=== PATIENT | male | born 1950 | race Caucasian/White ===

== ENCOUNTER 2016-09-07 14:50 | Emergency (ER) | payer MEDICARE, OTHER ==
--- NOTE | 2016-09-07 15:44 | ER NURSING DOCUMENTATION ---
Nurse's Notes [facility] Name:Francis Corbin III Age:66 yrs Sex:Male :1950 Arrival Date:09/07/2016 Time:14:50 Bed1 Private MD:Valerie Singh Diagnosis:Boxer's Fracture Presentation: 09/07 14:52 Acuity: TRE 4 rh 15:00 Presenting complaint: Patient states: Pt was hiking on [place], his let foot rh tripped on a rock, he then fell on the right knee, right hand and left forearm. pt did not hit his head or lose LOC. Transition of care: [facility]. 15:00 Method Of Arrival: Walk In Triage Assessment: 15:01 General: Appears in no apparent distress, Behavior is cooperative. Pain: Complains of rh pain in right hand, dorsal aspect of left forearm and right knee. Neuro: Level of Consciousness is awake, alert, obeys commands, Oriented to person, place, time, event. Musculoskeletal: Circulation, motion, and sensation intact Range of motion intact in all extremities. Injury Description: Abrasion sustained to right knee. Historical: - Allergies: CASHEWS; - Home Meds: 1. citalopram 20 mg oral tab 1 tab once daily 2. tramadol 50 mg oral tab 1 tab every 6 hours as needed 3. ibuprofen 200 mg oral cap 1 cap every 6 hours as needed 4. naproxen sodium 220 mg oral tab 1 tab every 8 hours as needed - PMHx: OSTEOARTHRITIS; DEPRESSION; HYPONATREMIA; ANEMIA; - PSHx: Appendectomy; HERNIA REPAIR; - Tetanus: < 10 years. - Ebola Screening: : Patient negative for fever greater than or equal to 101.5 degrees Fahrenheit, and additional compatible Ebola Virus Disease symptoms. - Immunization history: Flu Vaccine < 1 year. - Social history: Smoking status: Patient states was never smoker of tobacco. Screenin:02 Infectious Disease Risk None. Abuse screen: Denies threats or abuse. Denies injuries rh from another. Nutritional screening: No deficits noted. Assessment: 15:02 See Triage Assessment done by same RN. Vital Signs: 15:01 BP 120 / 74; Pulse 73; Resp 15; Temp 98.0(O); Pulse Ox 95% on R/A; Weight 77.11 kg; rh Height 5 ft. 10 in. (177.80 cm); Pain 6/10; 15:01 Body Mass Index 24.39 (77.11 kg, 177.80 cm) ED Course: 14:51 Patient arrived in ED. ds 14:51 Valerie Singh DO is Private Physician. 14:52 Triage completed. rh 14:58 Jere Henning MD is Attending Physician. larissa 15:00 Lashanda Sultana is Primary Nurse. rh 15:02 Notified ED Physician of patient's arrival and chief complaint. Dr. Henning notified. rh 15:02 Affected limb iced. Affected limb elevated. rh 15:02 Valuables Remains with patient Patient has correct armband on for positive rh identification. Bed in low position. Side rails up X 1. 15:05 Port Xray Completed. ms 15:14 RING REMOVED FROM RIGHT RING FINGER. rh 15:25 Ulnar gutter splint applied on right forearm. rh 15:31 Wound care to abrasion, located on right knee was cleaned with soap and water, dressed rh with bacitracin Kerlix, Telfa Patient tolerated well. 15:32 Norman Robbins MD, Nakul Doss DO is Referral Physician. larissa Administered Medications: No medications were administered Outcome: 15:32 Discharge ordered by . 15:42 Discharged to home ambulatory. 15:42 Condition: improved 15:42 Discharge Assessment: Patient awake, alert and oriented x 3. No cognitive and/or functional deficits noted. Patient verbalized understanding of disposition instructions. 15:42 Discharge instructions given to patient, Instructed on discharge instructions, follow up and referral plans. [facility] Demonstrated understanding of instructions. 15:43 Patient left the ED. 09/08 09:32 Discharge F/U Call: Unable to reach: no answer st Signatures: Pati Montenegro, RN RN st ot, Yesenia, Reg Reg Jere Mclean MD MD jm Strickland, Mary ms Lashanda Sultana
--- NOTE | 2016-09-07 15:44 | ER PHYSICIAN DOCUMENTATION ---
Physician Documentation [facility] Name:Francis Corbin III Age:66 yrs Sex:Male :1950 Arrival Date:09/07/2016 Time:14:50 Bed1 Private MD:Valerie Singh ED, John Disposition: 09/07/16 15:32 Discharged to Home/Self Care. Impression: Boxer's Fracture. - Condition is Good. - Discharge Instructions: FRACTURE, Hand [Closed]. - Medical Reconciliation form form. - Follow up: Norman Robbins MD, Nakul Doss DO; When: 1 week; Reason: Continuance of care. - Problem is new. - Symptoms have improved. HPI: 09/07 15:44 This 66 yrs old Male presents to ER via Walk In with complaints of Finger jm Injury - LEFT. 15:44 The patient or guardian reports injury, pain. The complaints affect the outer aspect of jm right palm. Context: resulted from a fall, on an outstretched hand. Onset: The symptom(s)/episode began/occurred today. Modifying factors: the symptoms are aggravated by movement. Associated signs and symptoms: Pertinent negatives: fever. The patient has experienced a previous episode. Pt here for xray of the hand and for us to cut off his ring on his L ring finger after a fall. . Historical: - Allergies: CASHEWS; - Home Meds: 1. citalopram 20 mg oral tab 1 tab once daily 2. tramadol 50 mg oral tab 1 tab every 6 hours as needed 3. ibuprofen 200 mg oral cap 1 cap every 6 hours as needed 4. naproxen sodium 220 mg oral tab 1 tab every 8 hours as needed - PMHx: OSTEOARTHRITIS; DEPRESSION; HYPONATREMIA; ANEMIA; - PSHx: Appendectomy; HERNIA REPAIR; - Tetanus: < 10 years. - Ebola Screening: : Patient negative for fever greater than or equal to 101.5 degrees Fahrenheit, and additional compatible Ebola Virus Disease symptoms. - Immunization history: Flu Vaccine < 1 year. - Social history: Smoking status: Patient states was never smoker of tobacco. ROS: 15:58 MS/extremity: Positive for injury or acute deformity, decreased range of motion. jm 15:58 Skin: Positive for swelling. Exam: 15:58 Constitutional: The patient appears alert, awake. jm 15:58 Cardiovascular: Rate: normal, Rhythm: regular, Pulses: no pulse deficits are appreciated. 15:58 Musculoskeletal/extremity: Extremities: grossly normal except: noted in the outer aspect of right palm: deformity, pain, ROM: limited active range of motion due to pain, limited passive range of motion due to pain, Pulses: are normal with no appreciated deficits, Perfusion: the extremity is normally perfused throughout, Sensation intact. 15:58 Neuro: Mentation: is normal, Memory: is normal. Vital Signs: 15:01 BP 120 / 74; Pulse 73; Resp 15; Temp 98.0(O); Pulse Ox 95% on R/A; Weight 77.11 kg; rh Height 5 ft. 10 in. (177.80 cm); Pain 6/10; 15:01 Body Mass Index 24.39 (77.11 kg, 177.80 cm) rh Procedures: 15:58 Splinting: Splint applied to outer aspect of right palm using Orthoglass splint, jm applied by myself. Examined by me, post splint application: neurovascular intact, brisk capillary refill noted, Patient tolerated well. MDM: 14:58 Patient medically screened. 15:58 Differential diagnosis: closed fracture. Data reviewed: vital signs, nurses notes, and jm as a result, I will discharge patient. Counseling: I had a detailed discussion with the patient and/or guardian regarding: the historical points, exam findings, and any diagnostic results supporting the discharge/admit diagnosis, radiology results, the need for outpatient follow up, with the patient's primary care provider, a hand specialist, a orthopedic surgeon. ED course: Pt w 5th [facility] fx. . 09/07 16:15 Order name: HAND; [address] [place] [id number] EDMS 09/07 15:00 Order name: ORTHO: Ice Pack; Complete Time: 15:14 rh 09/07 15:14 Order name: Ring Removal; Complete Time: 15:14 rh 09/07 15:18 Order name: Wound Care; Complete Time: 15:18 rh 09/07 15:33 Order name: ORTHO: Splint; Complete Time: 15:33 rh Dispensed Medications: No medications were administered Signatures: Jere Henning MD MD jm Hofsess, Rachel
--- NOTE | 2016-09-07 15:45 | RADIOLOGY REPORT ---
Three views of the right hand demonstrate a comminuted fracture involving the mid shaft region of the right fifth metacarpal. There is approximately 30 degrees of apex dorsal angulation. I do not identify intraarticular involvement. No other acute abnormality is identified. Degenerative changes of the right third metacarpal phalangeal joint are noted. IMPRESSION: Angulated comminuted mid shaft fracture of the right fifth metacarpal as described. MTDD
== END 2016-09-07 15:44 | disposition home or self-care (01) ==
LOC: ER 14:50
DX: S62.326A Displaced fracture of shaft of fifth metacarpal bone, right hand, initial encounter for closed fracture (principal); M79.89 Other specified soft tissue disorders; S80.211A Abrasion, right knee, initial encounter; W01.0XXA Fall on same level from slipping, tripping and stumbling without subsequent striking against object, initial encounter; Y92.838 Other recreation area as the place of occurrence of the external cause; Y93.01 Activity, walking, marching and hiking; M19.90 Unspecified osteoarthritis, unspecified site; Z79.899 Other long term (current) drug therapy
CPT/HCPCS: 29125; 73130; 99283; 99284

== ENCOUNTER 2016-10-06 12:07 | Day surgery (SDC) | payer MEDICARE, OTHER ==
[2016-10-06] MEDS ORDERED: ceFAZolin 1 GM in NORMAL SALINE MINI-BAG+ 100 ML IV PRN ×2 (12:16→13:33)
[2016-10-06] MEDS ORDERED: BUPIVACAINE HCL/PF 0.25% 10 ML VIAL INJ ONE (13:25)
[2016-10-06] MEDS ORDERED: LACTATED RINGERS 1,000 ML IV SCH (14:00)
[2016-10-06] MEDS ORDERED: BACITRACIN 14 APP/14 GM TUBE TOPICAL ONE (14:11)
[2016-10-06 14:28] VITALS: RESP 16; TEMP 97.9
--- NOTE | 2016-10-06 14:34 | RADIOLOGY REPORT ---
Two limited views from the C-Arm in the operating room are compared with prior films dated 10/04/2016. There has been interval reduction and pinning of the distal interphalangeal joint. No other change is identified. IMPRESSION: Interval reduction and pinning of the right fourth distal interphalangeal joint. [facility]
[2016-10-06 15:01] VITALS: BP 162/95; PULSE 65; O2SAT 91
--- NOTE | 2016-10-06 15:08 | OPERATIVE REPORT ---
Preoperative diagnosis: Right ring finger DIP joint dorsal dislocation Postoperative diagnosis: Same Procedure: Right ring finger DIP joint open reduction internal fixation. Surgeon Dr. Nakul Doss Anesthesia: Local block with sedation Estimated blood loss: Minimal Total tourniquet time: 35 minutes Procedure note: The patient is brought to the OR suite after administration of conscious sedation by the anesthesia provider the right ring finger had a digital block performed with 10 mL of quarter percent bupivacaine. A reduction maneuver was attempted under fluoroscopic imaging which was unsuccessful therefore a dorsal incision was made and dissection was carried down to the extensor tendon which was intact. There was some hematoma and scar tissue in the joint which was debrided with a hemostat clamp. The reduction maneuver was then unsuccessful. A double ended K wire was then shot antegrade through the distal phalanx. The DIP joint was then reduced and then the K wire was drilled back retrograde into the middle phalanx with the DIP joint reduced. Fluoroscopic imaging confirmed appropriate placement of the K wire and anatomic reduction of the DIP joint. The incision was closed with simple interrupted 3- 0 nylons and dressed with bacitracin ointment, Xeroform 4 x 4s, 4 x 4 fluffs and an ulnar gutter splint as the patient does have an ipsilateral fifth metacarpal fracture. Prior to application of the dressing a Jurgans ball was attached to the tip of the pin and the pin was cut. The patient was transferred from the OR suite to recovery room in stable condition. [facility]ITAL[facility]rey
--- NOTE | 2016-10-14 12:47 | PREOPERATIVE H&P ---
History of Present Illness (Nakul Doss DO; 10/04/2016 4:12 PM) The patient is a 66 year old male. Patient presents 25 days out from his right fifth metacarpal fracture. He has been compliant with his brace. He has also noticed that his right ring finger has been hurting more and more as his hand pain resolves. He did not originally complain of any pain in the ring finger, however it has become more apparent over the last few days. Additionally, the ring finger was immobilized along with the rest of his hand. After closely reviewing the patient's x-rays from the emergency room, it was noted that he did have a dorsal dislocation of the distal interphalangeal joint of his ring finger. This dorsal dislocation is still present today with x-rays obtained. He has been compliant with his brace wear. His pain has been well-controlled. Allergies (Karine Garcia RN; 10/04/2016 10:37 AM) Nuts Anaphylaxis. cashew No Known Bokaniupw23/28/2016 (Marked as Inactive) Family History (Karine Garcia RN; 10/04/2016 10:37 AM) Father Prostate cancer Maternal Grandmother Leukemia Maternal Grandfather Stomach Cancer ( early 40s) No Significant Family Ocular History Family Members In General. grandmother had leukemia, grandfather had stomach cancer, and father had prostate cancer. Social History (Karine Garcia RN; 10/04/2016 10:37 AM) Tobacco Use Never smoker. Current work status Retired. nursing background, [employer] Medication History (Karine Garcia RN; 10/04/2016 10:37 AM) EpiPen 2-Omkar (0.3MG/0.3ML Soln Auto-inj, 1 (one) Soln Auto-inj Injection to use as directed, Taken starting 08/14/2015) Active. Citalopram Hydrobromide (20MG Tablet, 1 (one) Tablet Oral daily, Taken starting 10/15/2015) Active. TraMADol HCl (50MG Tablet, 1 Oral 1 po tid prn pain, Taken starting 08/09/2016 ) Active. Ibuprofen (200MG Tablet, 3-4 Oral) Active. (arthritis in thumbs) Garlic 1500 (Oral) Specific dose unknown - Active. Xckmhradiks-Zbcvnykzihj-PWO ([phone] Tablet, 3 Oral daily) Active. Benadryl (25MG Capsule, 1 Oral at bedtime) Active. HM Naproxen Sodium (220MG Tablet, 2 Oral daily) Active. (arthritis in thumbs) KURT-e (200MG Tablet DR, 3 Oral daily) Active. Medications Reconciled Review of Systems (Nakul Doss ; 10/04/2016 4:13 PM) General Not Present- Chills and Fever. Skin Not Present- Erythema, Skin Color Changes and Skin Problems. HEENT Present- Sleep Apnea (does not wear CPAP). Neck Not Present- Neck Pain. Respiratory Present- Cough (dry cough recently). Not Present- Shortness of Breath. Cardiovascular Not Present- Chest Pain, Difficulty Breathing On Exertion, Fainting and Leg Pain and/or Swelling. Gastrointestinal Not Present- Abdominal Pain, Nausea and Vomiting. Male Genitourinary Not Present- Painful Urination and Urethral Discharge. Musculoskeletal Present- Muscle Pain (frequent leg cramps- discussed water intake). Not Present- Decreased Range of Motion, Joint Pain, Joint Stiffness, Joint Swelling and Muscle Weakness. Neurological Not Present- Dizziness, Focal Neurological Symptoms, Numbness in extremities, Trouble walking and Weakness. Psychiatric Present- Depression (clinical depression- on Citalopram). Not Present- Anorexia and Anxiety. Endocrine Not Present- Weight Loss. Hematology Not Present- Bleeding Problems, DVT and Easy Bruising. Vitals (Karine Garcia RN; 10/04/2016 10:36 AM) 10/04/2016 10:34 AM Weight: 173 lb Height: 70in Body Surface Area: 1.96 m Body Mass Index: 24.82 kg/m Temp.: 97.1F Pulse: 72 (Regular) Resp.: 16 (Unlabored) BP: 140/78 (Sitting, Left Arm, Standard) Physical Exam (Nakul Doss ; 10/04/2016 4:16 PM) Note:Physical examination of the right hand demonstrates normal sensation and adequate perfusion. Mild tenderness to palpation over the fifth metacarpal. Positive tenderness to palpation over the DIP joint of the ring finger. Positive step-off palpated. A digital block was performed with 4 mL of 1% lidocaine and a reduction maneuver was performed the DIP joint which was able to be reduced but did not maintain reduction indicating that the patient did have, at the time of his injury, disruption of the surrounding supportive soft tissues. Assessment & Plan (Nakul Doss DO; 10/04/2016 4:19 PM) Closed fracture of shaft of fifth metacarpal bone of right hand, initial encounter (S62.326A) Impression: The patient will continue to wear his ulnar gutter splint. Follow- up x-rays should be obtained at about 6 weeks. Dislocation of distal interphalangeal joint of right ring finger (S63.576A) Impression: This late presentation of this injury will require pinning. The patient will be able to be removed at 4 weeks postop. He may also need open scar tissue resection for adequate reduction. After educating the patient regarding treatment options with their associated risks and benefits, the patient elected to proceed with surgical treatment of the injury/pathology with RIGHT RING FINGER DIP JOINT OPEN REDUCTION INTERNAL FIXATION. The risks and benefits of the specific procedure were explained and all questions and concerns were addressed and answered. Post operative rehabilitation requirements and expectations for optimal outcome were reviewed and the patient confirmed understanding these and committed to compliance. All questions answered. This procedure will be performed under local anesthesia. Current Plans ORIF, FRACTURE, ARTICULAR, FINGER, METACARPOPHALANGEAL OR INTERPHALANGEAL JOINT ([id number]) (right distal interphalangeal joint) History and Physical Note Addendum Note(Nakul Doss DO; 10/04/2016 4:22 PM) I had a very open and elier discussion with the patient and apologized to him that this injury was not diagnosed earlier. I did inform him that DIP injuries often do presents late, from the time of the injury, however this was no excuse for not making the diagnosis at the time of his original injury. He was very kind and understanding, and did accept my apologies, and is just happy that I figured out what was wrong with his finger. Signed by Nakul Doss DO (10/04/2016 4:19 PM) [place]
== END 2016-10-06 15:10 | disposition home or self-care (01) ==
LOC: SDS 12:07
PROVIDERS: ATTEND Orthopaedic Surgery
DX: M24.444 Recurrent dislocation, right finger (principal); G47.39 Other sleep apnea
CPT/HCPCS: 26746; 76000; J0690